=== PATIENT | male | born 1935 | race Caucasian/White ===

== ENCOUNTER 2016-12-13 17:12 | Inpatient (IN) | payer MEDICARE, BC ==
--- NOTE | ~2016-12-13 | DS ---
Discharge Summary [place] [address] [facility] [place]. [address] NAME: KIMBERLEY CHINO : 35 STATUS : DIS IN PAT#: [id number] AGE: 81 ADM/REG DATE : 12/14/16 MR#: [id number] REPORT SERV DATE: 12/18/16 DICTATED BY: LILIAN LONG DATE: 12/17/16 REPORT STATUS : Draft TRANSCRIBED BY: MODL DATE: 12/17/16 ADMISSION DATE: 12/14/2016 DISCHARGE DATE: 12/17/2016 ADDENDUM: Greater than 30 minutes were spent with the patient on discharge planning on discharge day. MAGALY/RG Lilian Long M.D. / [id number] CC: Rakesh Clifton
--- NOTE | ~2016-12-13 | HP ---
History And Physical [facility] [address] [place]. [address] NAME: KIMBERLEY CHINO : 35 STATUS : ADM Shirley PAT#: [id number] AGE: 81 ADM/REG DATE : 12/13/16 MR#: [id number] REPORT SERV DATE: 12/14/16 DICTATED BY: JAVIER BUENO DATE: 12/14/16 REPORT STATUS : Draft TRANSCRIBED BY: MODL DATE: 12/14/16 DATE OF ADMISSION: 12/13/2016 CHIEF COMPLAINT: Epigastric pain with persistent shortness of breath. Of note, this is the patient's fourth hospital admission in the last month. First admission occurring approximately four weeks ago at initial presentation of flu in which the patient spent one night at outside facility in [facility] and came back to home, has spent approximately five to six days in [facility] for COPD exacerbation. Subsequently, was discharged and had readmission for another 5 to 6 days, was discharged approximately 48 hours ago and comes to [facility] for additional evaluation and the patient's sequins slinger Dr. Bernard's association with [facility]. 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 The patient reports that during his last hospital stay he had not had a bowel movement approximately 5 days although his IBS symptoms are typically in the diarrhea form. Symptoms became worse after 8 today although at the most he has eaten in a long time. He had significant amount of epigastric pain that is constant moderate severity, radiating to back with sharp type feeling. No headache but did have mild nausea. No fever or chills but did have shortness of breath although this is improved from his baseline, mild wheezing. No swelling or redness. Symptoms worsened with activity, palpation, relieved only by rest and pain medications given in the emergency room. The patient has had mild vomiting of various colored material and still has not been able to have a bowel movement. Family members, 3 daughters and who are at bedside believes that it is either gallbladder and requesting HIDA scan all the way to possible costochondritis versus possible gastritis. The patient does see Dr. Sandhu for Pulmonary, does see Dr. Bernard for Cardiology, and Dr. Dunbar for GI. REVIEW OF SYSTEMS: The patient does have generalized weakness. No active fevers at this time. EYES: No visual changes or pain. ENT: Does have sore throat and congestion symptoms. NEURO: No headache or confusion. SKIN: No rashes or bruising. RESPIRATORY: Does have shortness of breath, occasional wheeze and cough. CV: Does have mid epigastric pain, but no palpitations or edema. Does have irregularly high blood pressure at this time. GI: Does have nausea, vomiting, and constipation. Does have IBS history but previously has diarrhea history. : No dysuria, hematuria. History And Physical [address] [address] NAME: KIMBERLEY CHINO : 35 STATUS : ADM Shirley PAT#: [id number] AGE: 81 ADM/REG DATE : 12/13/16 MR#: [id number] REPORT SERV DATE: 12/14/16 DICTATED BY: JAVIER BUENO DATE: 12/14/16 REPORT STATUS : Draft TRANSCRIBED BY: MODMagy DATE: 12/14/16 MUSCULOSKELETAL: No myalgias, arthralgias above baseline. ENDO: Mild fatigue and has hyperglycemia as high as 300s in the last few days. HEME: No bleeding or bruising. NEUROLOGIC: No rhinorrhea. PSYCH: No anxiety or confusion. PAST MEDICAL HISTORY: Noted for COPD, emphysema component, recent flu, diabetes type 2, rheumatic fever as a child, asthma, IBS with diarrhea component. SURGICAL HISTORY: Prostate and hernia. SOCIAL HISTORY: Quit smoking in 90s. No alcohol or illicits. FAMILY HISTORY: Negative heart disease and diabetes. Family fairly healthy. EKG: Sinus rhythm, rate 75, QTc 410. PHYSICAL EXAMINATION: GENERAL: The patient's blood pressure 183/78, temperature 97.6, pulse 85, respirations 19, O2 sats 90% on room air. GENERAL: The patient is elderly but otherwise well developed, well nourished. EYES: No scleral icterus. EOMI. ENT: Nares patent. Tongue midline. Does have posterior thrush. NECK: No JVD. RESPIRATORY: End-expiratory wheeze with polyphonic lower breath sounds. No stridor. Chest equal chest expansion. Mild increased AP diameter. CV: Regular rate. No rubs but does have systolic ejection murmur approximately 2/6. GI: Reproducible tenderness to palpation on epigastric area. Mild dullness to percussion. No hepatosplenomegaly appreciable. No CVA tenderness. : Deferred. MUSCULOSKELETAL: Moves all extremities x4. SKIN: Warm, dry. LYMPH: Trace pedal edema bilaterally. HEME: No acute bleeding or bruising. NEURO: Alert and oriented. Moves all extremities x4. Symmetrical strength upper extremities. Sensation is still grossly intact. PSYCH: Appropriate mood and affect. Joking manner. ALLERGIES: LASIX AND PREDNISONE BUT HAS TOLERATED MEDROL DOSEPAK. HOME MEDICATIONS: Albuterol, Xanax, Symbicort, losartan, Glucophage, methylprednisolone, metoprolol, Protonix, simvastatin, Spiriva, Ambien. PERTINENT LABS: ABG on admission, pH 7.44, pCO2 of 42, pO2 of 61, bicarb 27.8. Chest portable COPD without focal airspace consolidation. BMP grossly within normal limits with elevated glucose of 217. BUN and creatinine 21 and 1.07. Troponin 0.04, lipase 77. LFTs within normal limits. Bilirubin within normal limits. Albumin 3.4. WBC count 27, H and H History And Physical [address] [address] NAME: KIMBERLEY CHINO : 35 STATUS : ADM Shirley PAT#: [id number] AGE: 81 ADM/REG DATE : 12/13/16 MR#: [id number] REPORT SERV DATE: 12/14/16 DICTATED BY: JAVIER BUENO DATE: 12/14/16 REPORT STATUS : Draft TRANSCRIBED BY: MODMagy DATE: 12/14/16 15.5 and 45.8, platelets 577. No bands appreciated. INR 1.0. BNP 87.5. CT abdomen and pelvis, no acute abdominal pelvic pathology. No imaging consultation for acute epigastric pain, small intermediate hyperdense 2.4 x 1.5 cm nodule, left adrenal gland. Does not meet imaging criteria for adrenal adenoma. Recommend outpatient schedule. Dedicated multiphase adrenal CT to include standard venous phase followed by 10-15 minute washout or the contrast enhancement pattern. Alternatively adrenal MRI could be performed for further characterization, small cyst margin in the right lobe of the liver, probable subcentimeter cortex left kidney, very mild diverticulosis sigmoid colon. No diverticulitis pattern, prostate enlargement, probable BPH on correlation with PSA. ASSESSMENT: 1. Epigastric pain. 2. Possible diabetic gastroparesis. 3. Chronic obstructive pulmonary disease, emphysema. 4. Recent flu. 5. Diabetes type 2, steroid-induced history. 6. Thrush. 7. Constipation. 8. Hypertension. 9. Leukocytosis. 10.Abnormal adrenal CT. 11.Possible BPH. PLAN: 1. Epigastric pain, does have constipation symptoms at this time for the last 5 days. The patient has been hospitalized approximately three times over the last month. Does have a long history of steroids, approximately going on for the last two weeks which could have caused symptomatic ulcer formation as the patient does have also a reflux history but has been on high-dose steroids and could have had worsening of ulcer symptoms. We will place on PPI and bowel regimen in an attempt to empty out bowel system and treat ulcers but may require GI evaluation if no resolution of symptoms. 2. Possible diabetic gastroparesis is also on differential. Blood sugar fair at this time. We will start Reglan trial for 24 hours. The patient does report having elevated blood sugars up to 300s at home after discharge and could have been subsequent episode as a sequelae of this, although the patient has never had a history of diabetic gastroparesis in the past. We will continue supportive treatment and blood sugar control. 3. Chronic obstructive pulmonary disease, emphysema history. Has had two weeks of steroids approximately. Will still need titration dose to wean. We will do IV steroids at this time,the patient is not tolerating p.o. very well. O2, DuoNebs, appears only mild exacerbation and per family appears to be significantly much more improved than initial presentation at outside facility. 4. Recent flu, has been treated. 5. Diabetes, insulin dependent, monitor, low-dose Levemir started, blood sugars in the 300s at home. 6. Thrush. Nystatin swish and swallow. History And Physical [address] [place]. [address] NAME: KIMBERLEY CHINO : 35 STATUS : ADM Shirley PAT#: [id number] AGE: 81 ADM/REG DATE : 12/13/16 MR#: [id number] REPORT SERV DATE: 12/14/16 DICTATED BY: JAVIER BUENO DATE: 12/14/16 REPORT STATUS : Draft TRANSCRIBED BY: MODaMgy DATE: 12/14/16 7. Constipation. Milk and molasses enema and additional support. The patient and family have tried multiple different p.o. and suppositories at home. 8. Hypertension p.r.n. and pain control. 9. Leukocytosis. No acute additional signs of additional infection but will need to monitor likely secondary to aggressive steroid treatment for underlying COPD, emphysema, and recent flu. 10.Abnormal CT of adrenals. Will need follow up with PCP after acute phase and additionally abnormal prostate with possible BPH. Will need followup PSA in the non acute setting. 11.Disposition pending findings from above. All questions answered with the patient's family at bedside. Care will be resumed by Medicine Team in a.m. YUDITHN/RG Javier Bueno MD / [id number] CC: Rakesh Clifton M.D. Paul Brundage
--- NOTE | ~2016-12-13 | DS ---
Discharge Summary [facility] [address] [facility] [place]. [address] NAME: KIMBERLEY CHINO : 35 STATUS : DIS IN PAT#: [id number] AGE: 81 ADM/REG DATE : 12/14/16 MR#: [id number] REPORT SERV DATE: 12/18/16 DICTATED BY: LILIAN LONG DATE: 12/17/16 REPORT STATUS : Draft TRANSCRIBED BY: MODL DATE: 12/17/16 ADMISSION DATE: 12/14/2016 DISCHARGE DATE: 12/17/2016 PRINCIPAL DIAGNOSIS: Abdominal pain due to constipation and chest pain due to gastroesophageal reflux disease radiating from the abdomen. SECONDARY DIAGNOSES: 1. Chronic obstructive pulmonary disease with exacerbation. 2. Type 2 diabetes exacerbated by steroids. 3. Weight loss due to chronic obstipation. 4. Chronic insomnia. HISTORY OF PRESENT ILLNESS: Please see Dr. Villanueva's dictation on 12/13/2016. HOSPITAL COURSE: Admitted with abdominal pain and chest pain. The patient was found to be very distended with chronic obstipation. The patient received sequential enemas with evacuation of the bowels, improvement of the symptoms. Patient seemed to have some issues with chest pain. However, he had an elevated troponin at 0.2 with previous concerns for heart disease when he had a previous hospitalization at [facility]. Echocardiogram apparently was negative then, but the concerns were still warranted to obtain a stress evaluation, a test was done on 12/17/2016 which he passed well. Normal ejection fraction. No evidence of ischemia. Steroids have been tapered down well. He breathes well. Blood pressure satisfactory. P.o. intake had improved. He ambulated well, had maximal benefit of hospitalization by 12/17/2016. Ambien was discarded due to concerns of drug interaction with Xanax and his advanced age. Xanax was changed to p.r.n. Remeron was given for sleep which worked well plus it improved his appetite and state of well being. He will continue to taper down the prednisone for the next two days. No antibiotics are necessary. He was recommended daily laxative therapy. Other medicines were unchanged. Follow up with Dr. Taylor Begum in one to two weeks and Dr. Maxwell Bernard in two to four weeks. MAGALY/GR Lilian Long M.D. / [id number] CC: Rakesh Clifton M.D.
[2016-12-13 16:50] LABS: ALLENS TEST Pos; BE (BASE EXCESS) 3.4 MEQ/L (0 +/- 2.5); CARBOXYHEMOGLOBIN 1.4 % (0-3); HCO3 (ACTUAL BICARBONATE) 27.8 MEQ/L (23-27); HEMOBLOGIN CONTENT 15.9 G/DL (14-18); INSTRUMENT SERIAL # 8087; METHEMOGLOBIN 0.4 % (0-3); O2 CONTENT 20.3 VOL% (18-24); PCO2 (CO2 TENSION) 42 MMHG (35-45); PO2 (O2 TENSION) 61 MMHG (79-93); SAMPLE Arterial; pH 7.44 (7.37-7.43)
[~2016-12-13 17:12] MED LIST: AMBIEN CR12.5 MG PO; COZ25 PO; GLUCPH PO; LOP50 PO; PROTONIX PO; SPIRIVA INH; SYMBICORT 160/41 INH INH; ZOCOR10 PO
[2016-12-13 17:16] LABS: BASOPHILS 0.1 %; BASOPHILS ABSOLUTE 0.02 10/3/uL (0.0-0.16); EOSINOPHILS 0.3 %; EOSINOPHILS ABSOLUTE 0.07 10/3/uL (0.0-0.53); HEMATOCRIT 45.8 % (40.0-51.0); HEMOGLOBIN 15.5 g/dL (13.6-17.8); IMMATURE GRANULOCYTES ABSOLUTE 0.28 10/3/uL (0.0-0.11); LYMPHOCYTES 7.5 %; LYMPHOCYTES ABSOLUTE 2.02 10/3/uL (0.67-4.30); MEAN CORPUS HGB CONC 33.8 g/dL (32.0-36.0); MEAN CORPUSCULAR HEMOGLOB 29.5 pg (26.0-34.0); MEAN CORPUSCULAR VOLUME 87.1 fL (80-100); MEAN PLATELET VOLUME 9.9 fL (9.2-13.0); MONOCYTES ABSOLUTE 0.26 10/3/uL (0.21-1.20); NEUTROPHILS 90.1 %; NEUTROPHILS ABSOLUTE 24.35 10/3/uL (2.02-8.40); RBC DISTRIBUTION WIDTH 13.4 % (12.0-16.0); RED CELL COUNT 5.26 10/6/uL (4.7-6.1)
[2016-12-13 17:18] LABS: ER CBC TAT 0 Hrs 09 Mins; PLATELET COUNT 577 10/3/uL (150-400)
[2016-12-13 17:20] LABS: MANUAL DIFF NO %
[2016-12-13 17:24] LABS: PARTIAL THROMBO TIME 26.2 SEC (22.5-37.2); PROTIME (NOT ORD) 13.1 SEC (12.0-14.5)
[2016-12-13 17:33] LABS: ALBUMIN 3.4 G/DL (3.5-5.0); ALKALINE PHOSPHATASE 87 U/L (45-117); CALCIUM, SERUM 9.7 MG/DL (8.5-10.4); CHEST PAIN PROFILE TAT 0 Hrs 24 Mins; CHLORIDE, SERUM 96 MMOL/L (96-112); CREATININE 1.07 MG/DL (0.70-1.30); DIRECT BILIRUBIN 0.2 MG/DL (0.0-0.4); GFR AFRICAN AMERICAN 75 ML/MIN (>=60); GFR NON AFRICAN AMERICAN 65 ML/MIN (>=60); INDIRECT BILIRUBIN(NOT ORDER) 0.7 MG/DL (0.1-0.9); POTASSIUM, SERUM 3.8 MMOL/L (3.5-5.3); SGOT(AST) 26 U/L (5-40); SGPT(ALT) 54 U/L (5-65); SODIUM, SERUM 136 MMOL/L (135-148); TOTAL BILIRUBIN 0.9 MG/DL (0-1.2); TOTAL PROTEIN 6.9 G/DL (6.0-8.5); TROPONIN I 0.04 NG/ML (<0.05)
[2016-12-13 17:36] LABS: BUN (BLOOD UREA NITROGEN) 21 MG/DL (6-23); CO2 (CARBON DIOXIDE) 32 MMOL/L (24-34); GLUCOSE, SERUM 217 MG/DL (60-99)
[2016-12-13 17:40] LABS: ER DIFF TAT 0 Hrs 31 Mins; LYMPHOCYTES 4 %; LYMPHOCYTES ABSOLUTE (CALC) 1.08 10/3/uL (0.67-4.30); MONOCYTES 2 %; MONOCYTES ABSOLUTE (CALC) 0.54 10/3/uL (0.21-1.20); NEUTROPHILS ABSOLUTE (CALC) 25.38 10/3/uL (2.02-8.40); SEGMENTED NEUTROPHIL (0) 94 %; TOTAL NUCLEATED CELLS 100
[2016-12-13 17:41] LABS: PLATELET ESTIMATE SLT INC (ADEQUATE); RBC MORPHOLOGY NORM (NORMAL)
[2016-12-13] MEDS ORDERED: MEDROLPAK4 (20:06)
[2016-12-13] MEDS ORDERED: LOP25 PO (20:06)
[2016-12-13] MEDS ORDERED: SYMBICORT 160/41 INH INH (20:07)
[2016-12-13] MEDS ORDERED: ALBUTEROL0.083 % INH (20:07)
[2016-12-13] MEDS ORDERED: GLUCPH PO (20:07)
[2016-12-13] MEDS ORDERED: X5 PO (20:07)
[2016-12-13] MEDS ORDERED: COZ25 PO (20:07)
[2016-12-13] MEDS ORDERED: SPIRIVA INH (20:08)
[2016-12-13] MEDS ORDERED: PROTONIX PO (20:08)
[2016-12-13] MEDS ORDERED: AMBIEN CR12.5 MG PO (20:08)
[2016-12-13] MEDS ORDERED: ZOCOR20 PO (20:08)
[2016-12-14 05:57] LABS: BASOPHILS 0 %; BASOPHILS ABSOLUTE 0.01 10/3/uL (0.0-0.16); EOSINOPHILS 0.5 %; HEMATOCRIT 43.3 % (40.0-51.0); HEMOGLOBIN 14.6 g/dL (13.6-17.8); IMMATURE GRANULOCYTES 0.9 %; LYMPHOCYTES 4.3 %; LYMPHOCYTES ABSOLUTE 0.92 10/3/uL (0.67-4.30); MEAN CORPUS HGB CONC 33.7 g/dL (32.0-36.0); MEAN CORPUSCULAR HEMOGLOB 29.9 pg (26.0-34.0); MEAN CORPUSCULAR VOLUME 88.7 fL (80-100); MEAN PLATELET VOLUME 9.4 fL (9.2-13.0); MONOCYTES 2.3 %; MONOCYTES ABSOLUTE 0.48 10/3/uL (0.21-1.20); NEUTROPHILS ABSOLUTE 19.48 10/3/uL (2.02-8.40); PLATELET COUNT 420 10/3/uL (150-400); RBC DISTRIBUTION WIDTH 13.3 % (12.0-16.0); RED CELL COUNT 4.88 10/6/uL (4.7-6.1); WHITE BLOOD CELLS 21.2 10/3/uL (4.5-10.5)
[2016-12-14 06:01] LABS: MANUAL DIFF NO %
[2016-12-14 06:25] LABS: A/G RATIO 0.9 (0.7-1.9); ALBUMIN 2.8 G/DL (3.5-5.0); ALKALINE PHOSPHATASE 80 U/L (45-117); BUN (BLOOD UREA NITROGEN) 23 MG/DL (6-23); CALCIUM, SERUM 8.6 MG/DL (8.5-10.4); CHLORIDE, SERUM 99 MMOL/L (96-112); CO2 (CARBON DIOXIDE) 33 MMOL/L (24-34); CREATININE 1.24 MG/DL (0.70-1.30); GFR AFRICAN AMERICAN 63 ML/MIN (>=60); GFR NON AFRICAN AMERICAN 54 ML/MIN (>=60); GLOBULIN 3.2 G/DL (2.5-4.1); GLUCOSE, SERUM 189 MG/DL (60-99); POTASSIUM, SERUM 4.6 MMOL/L (3.5-5.3); SGOT(AST) 24 U/L (5-40); SGPT(ALT) 45 U/L (5-65); SODIUM, SERUM 138 MMOL/L (135-148); TOTAL BILIRUBIN 0.9 MG/DL (0-1.2)
[2016-12-14 06:42] LABS: PROCALCITONIN 0.26 ng/mL (<0.5)
[2016-12-15 07:23] LABS: BUN (BLOOD UREA NITROGEN) 21 MG/DL (6-23); CALCIUM, SERUM 8.8 MG/DL (8.5-10.4); CHLORIDE, SERUM 100 MMOL/L (96-112); CO2 (CARBON DIOXIDE) 38 MMOL/L (24-34); CREATININE 1.03 MG/DL (0.70-1.30); GFR AFRICAN AMERICAN 79 ML/MIN (>=60); GFR NON AFRICAN AMERICAN 68 ML/MIN (>=60); GLUCOSE, SERUM 56 MG/DL (60-99); POTASSIUM, SERUM 4.1 MMOL/L (3.5-5.3); SODIUM, SERUM 143 MMOL/L (135-148)
[2016-12-15 08:32] LABS: BASOPHILS 0.1 %; BASOPHILS ABSOLUTE 0.02 10/3/uL (0.0-0.16); EOSINOPHILS 1.4 %; EOSINOPHILS ABSOLUTE 0.24 10/3/uL (0.0-0.53); HEMOGLOBIN 16.4 g/dL (13.6-17.8); IMMATURE GRANULOCYTES 0.8 %; IMMATURE GRANULOCYTES ABSOLUTE 0.13 10/3/uL (0.0-0.11); LYMPHOCYTES 5.4 %; MEAN CORPUS HGB CONC 32.8 g/dL (32.0-36.0); MEAN CORPUSCULAR HEMOGLOB 29.5 pg (26.0-34.0); MEAN CORPUSCULAR VOLUME 89.9 fL (80-100); MONOCYTES ABSOLUTE 1.34 10/3/uL (0.21-1.20); NEUTROPHILS 84.3 %; NEUTROPHILS ABSOLUTE 14.19 10/3/uL (2.02-8.40); PLATELET COUNT 368 10/3/uL (150-400); RBC DISTRIBUTION WIDTH 13.6 % (12.0-16.0); RED CELL COUNT 5.56 10/6/uL (4.7-6.1); WHITE BLOOD CELLS 16.8 10/3/uL (4.5-10.5)
[2016-12-15 08:40] LABS: MANUAL DIFF NO %
[2016-12-16 05:41] LABS: BASOPHILS 0.1 %; BASOPHILS ABSOLUTE 0.01 10/3/uL (0.0-0.16); EOSINOPHILS 2.6 %; EOSINOPHILS ABSOLUTE 0.31 10/3/uL (0.0-0.53); IMMATURE GRANULOCYTES 1.6 %; IMMATURE GRANULOCYTES ABSOLUTE 0.19 10/3/uL (0.0-0.11); LYMPHOCYTES 8.9 %; LYMPHOCYTES ABSOLUTE 1.07 10/3/uL (0.67-4.30); MEAN CORPUS HGB CONC 32.7 g/dL (32.0-36.0); MEAN CORPUSCULAR HEMOGLOB 29.7 pg (26.0-34.0); MEAN CORPUSCULAR VOLUME 90.6 fL (80-100); MEAN PLATELET VOLUME 9.8 fL (9.2-13.0); MONOCYTES ABSOLUTE 0.85 10/3/uL (0.21-1.20); NEUTROPHILS 79.8 %; NEUTROPHILS ABSOLUTE 9.66 10/3/uL (2.02-8.40); PLATELET COUNT 335 10/3/uL (150-400); RBC DISTRIBUTION WIDTH 13.4 % (12.0-16.0); RED CELL COUNT 4.38 10/6/uL (4.7-6.1); WHITE BLOOD CELLS 12.1 10/3/uL (4.5-10.5)
[2016-12-16 05:42] LABS: HEMATOCRIT 39.7 % (40.0-51.0); MANUAL DIFF NO %
[2016-12-16 05:49] LABS: BUN (BLOOD UREA NITROGEN) 18 MG/DL (6-23); CALCIUM, SERUM 8.6 MG/DL (8.5-10.4); CHLORIDE, SERUM 104 MMOL/L (96-112); CHOL/HDL RATIO(NOT ORDER) 2.1 (0-5); CHOLESTEROL 146 MG/DL (< 200); CREATININE 0.94 MG/DL (0.70-1.30); GFR AFRICAN AMERICAN 88 ML/MIN (>=60); GFR NON AFRICAN AMERICAN 76 ML/MIN (>=60); HDL CHOLESTEROL 70 MG/DL (> 39); LDL CHOLESTEROL 58 MG/DL (< 130); NON-HDL CHOLESTEROL 76 MG/DL (< 160); POTASSIUM, SERUM 4.2 MMOL/L (3.5-5.3); SODIUM, SERUM 141 MMOL/L (135-148); TRIGLYCERIDE 93 MG/DL (< 150)
[2016-12-16 05:51] LABS: CO2 (CARBON DIOXIDE) 32 MMOL/L (24-34); GLUCOSE, SERUM 125 MG/DL (60-99)
[2016-12-17] MEDS ORDERED: MIRALAX POWDER1 PKT PO (15:50)
[2016-12-17] MEDS ORDERED: REM15 PO (15:51)
[2016-12-17] MEDS ORDERED: REG5 PO (15:52)
== END 2016-12-17 16:11 | disposition home or self-care (01) | DRG 392 ==
LOC: ER 17:12 → 4SO 21:48
PROVIDERS: Emergency Medicine; Internal Medicine; Student in an Organized Health Care Education/Training Program
DX: K21.9 Gastro-esophageal reflux disease without esophagitis (principal); I24.8 Other forms of acute ischemic heart disease; E11.65 Type 2 diabetes mellitus with hyperglycemia; K31.84 Gastroparesis; J44.1 Chronic obstructive pulmonary disease with (acute) exacerbation; E11.43 Type 2 diabetes mellitus with diabetic autonomic (poly)neuropathy; K59.00 Constipation, unspecified; B37.9 Candidiasis, unspecified; I10 Essential (primary) hypertension; J43.9 Emphysema, unspecified; K58.9 Irritable bowel syndrome, unspecified; N40.0 Benign prostatic hyperplasia without lower urinary tract symptoms; R63.4 Abnormal weight loss; G47.00 Insomnia, unspecified; Z79.4 Long term (current) use of insulin; Z88.8 Allergy status to other drugs, medicaments and biological substances; Z98.890 Other specified postprocedural states
CPT/HCPCS: 36600; 71010; 74020; 74176; 78452; 80048; 80053; 80061; 80076; 82805; 82962; 83036; 83690; 83735; 83880; 84145; 84443; 84484; 85025; 85610; 85730; 87040; 93005; 93017; 94640; 96365; 96375; 99285; A9270-GY; A9502; C9113; J0360; J2405; J2765; J2800; J2920

== ENCOUNTER 2017-01-02 10:53 | Emergency (ER) | payer MEDICARE, BC ==
[~2017-01-02 10:53] MED LIST changes: +ALBUTEROL0.083 % INH; +LOP25 PO; +MEDROLPAK4; +MIRALAX POWDER1 PKT PO; +REG5 PO; +REM15 PO; +X5 PO; +ZOCOR20 PO
[2017-01-02 11:09] LABS: INSTRUMENT SERIAL # 8087; PCO2 (CO2 TENSION) 37 MMHG (35-45); pH 7.48 (7.37-7.43)
[2017-01-02 11:10] LABS: ALLENS TEST Pos; BE (BASE EXCESS) 3.7 MEQ/L (0 +/- 2.5); HEMOBLOGIN CONTENT 14.2 G/DL (14-18); METHEMOGLOBIN 0.3 % (0-3); O2 CONTENT 17.5 VOL% (18-24); PO2 (O2 TENSION) 57 MMHG (79-93); SAMPLE Arterial
[2017-01-02 11:29] LABS: HEMATOCRIT 41.6 % (40.0-51.0); HEMOGLOBIN 13.9 g/dL (13.6-17.8); MEAN CORPUS HGB CONC 33.4 g/dL (32.0-36.0); MEAN CORPUSCULAR VOLUME 89.8 fL (80-100); RBC DISTRIBUTION WIDTH 13.8 % (12.0-16.0); RED CELL COUNT 4.63 10/6/uL (4.7-6.1); WHITE BLOOD CELLS 11.4 10/3/uL (4.5-10.5)
[2017-01-02 11:30] LABS: MANUAL DIFF YES %; PLATELET COUNT 474 10/3/uL (150-400)
[2017-01-02 11:37] LABS: INTERNATIONAL NORMAL RATI 1.1 UNITS (-); PARTIAL THROMBO TIME 31.4 SEC (22.5-37.2); PROTIME (NOT ORD) 14.5 SEC (12.0-14.5)
[2017-01-02 11:43] LABS: A/G RATIO 0.6 (0.7-1.9); ALBUMIN 2.6 G/DL (3.5-5.0); ALKALINE PHOSPHATASE 73 U/L (45-117); BUN (BLOOD UREA NITROGEN) 16 MG/DL (6-23); CALCIUM, SERUM 9.4 MG/DL (8.5-10.4); CHLORIDE, SERUM 96 MMOL/L (96-112); CO2 (CARBON DIOXIDE) 29 MMOL/L (24-34); CREATININE 1.12 MG/DL (0.70-1.30); GFR AFRICAN AMERICAN 71 ML/MIN (>=60); GFR NON AFRICAN AMERICAN 61 ML/MIN (>=60); GLOBULIN 4.4 G/DL (2.5-4.1); GLUCOSE, SERUM 149 MG/DL (60-99); POTASSIUM, SERUM 4.2 MMOL/L (3.5-5.3); SGOT(AST) 11 U/L (5-40); SGPT(ALT) 21 U/L (5-65); SODIUM, SERUM 137 MMOL/L (135-148); TOTAL BILIRUBIN 1.2 MG/DL (0-1.2)
[2017-01-02 11:56] LABS: BAND NEUTROPHILS 3 %; EOSINOPHILS 12 %; EOSINOPHILS ABSOLUTE (CALC) 1.37 10/3/uL (0.0-0.53); ER DIFF TAT 0 Hrs 33 Mins; IMMATURE GRANS ABSOLUTE (CALC) 0.46 10/3/uL (0.0-0.11); LACTATE 0.9 MMOL/L (0.3-2.4); LYMPHOCYTES 8 %; LYMPHOCYTES ABSOLUTE (CALC) 0.91 10/3/uL (0.67-4.30); METAMYELOCYTES 3 %; MONOCYTES 10 %; MONOCYTES ABSOLUTE (CALC) 1.14 10/3/uL (0.21-1.20); MYELOCYTES 1 %; NEUTROPHILS ABSOLUTE (CALC) 7.52 10/3/uL (2.02-8.40); PLATELET ESTIMATE SLT INC (ADEQUATE); RBC MORPHOLOGY NORM (NORMAL); SEGMENTED NEUTROPHIL (0) 63 %; TOTAL NUCLEATED CELLS 100
[2017-01-02 12:18] LABS: PROCALCITONIN 0.15 ng/mL (<0.5)
[2017-01-02 12:54] LABS: INFLUENZA A SCREEN NEGATIVE (NEGATIVE); INFLUENZA B SCREEN NEGATIVE (NEGATIVE)
[2017-01-02 14:12] LABS: ASCORBIC ACID (UR NOT ORDER) 20 (NEG); BILIRUBIN, URINE NEGATIVE (NEG); ER URINALYSIS TAT 0 Hrs 09 Mins; KETONE, URINE 80 MG/DL (NEG); LEUKOCYTE ESTERASE(NOT OR NEG (NEG); NITRITE (URINE) NEG (NEG); WBC (NOT ORDERED) (RFLEX) < 1 (0-5)
[2017-01-02 14:43] LABS: ACETAMINOPHEN LEVEL (TYLENOL) < 2.0 MCG/ML (10.0-20.0); ALCOHOL < 10 MG/DL (0); SALICYLATE < 1.7 MG/DL (-)
== END 2017-01-02 15:00 | disposition home or self-care (01) ==
LOC: ER 10:53
PROVIDERS: Nurse Practitioner
DX: R06.02 Shortness of breath (principal); J44.9 Chronic obstructive pulmonary disease, unspecified; I10 Essential (primary) hypertension; E11.9 Type 2 diabetes mellitus without complications; F17.200 Nicotine dependence, unspecified, uncomplicated; Z88.8 Allergy status to other drugs, medicaments and biological substances; Z79.84 Long term (current) use of oral hypoglycemic drugs; Z79.899 Other long term (current) drug therapy
CPT/HCPCS: 36600; 71010; 80053; 80307; 81001; 82805; 83605; 84145; 85025; 85610; 85730; 87040; 87804; 93005; 94640; 96374; 99285; J2930